=== PATIENT | female | born 2000 | race African-American/Black ===

== ENCOUNTER 2022-01-28 08:44 | Emergency (ER) | payer OTHER, BC, SELFPAY ==
--- NOTE | ~2022-01-28 | XR_ITS ---
EXAMINATION: XR lumbar spine 2-3V DATE: 01/28/2022 09:21 INDICATION: Low back pain TECHNIQUE: Anteroposterior and lateral views of the lumbar spine, and cone-down lateral view of the l umbosacral junction were obtained. COMPARISON: None. FINDINGS: There is no fracture, dislocation, or subluxation. The vertebral body heights, alignment, a nd intervertebral disc spaces are normal. The paravertebral soft tissues are unremarkable. IMPRESSION: 1. No acute osseous abnormality. Reviewed, dictated and finalized at location B.
--- NOTE | ~2022-01-28 | XR_ITS ---
EXAMINATION: XR ribs LT 2V INDICATION: Left-sided chest pain TECHNIQUE: 3 views of the left ribs were obtained. COMPARISON: None. FINDINGS: The visualized lungs are free of acute opacities. No pleural effusion or pneumothorax ident ified. The cardiomediastinal silhouette is normal. The visualized bones and soft tissues are unremark able. No displaced rib fracture is identified. IMPRESSION: 1. No acute cardiopulmonary abnormality or evidence of displaced rib fracture. Reviewed, dictated and finalized at location B.
[2022-01-28 08:47] VITALS: BP 113/71; PULSE 74; RESP 16; TEMP 36.7; O2SAT 100
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
== END 2022-01-28 10:32 | disposition home or self-care (01) ==
PROVIDERS: Emergency Provider Nurse Practitioner Family
DX: S39.012A Strain of muscle, fascia and tendon of lower back, initial encounter (principal); S20.212A Contusion of left front wall of thorax, initial encounter; V49.40XA Driver injured in collision with unspecified motor vehicles in traffic accident, initial encounter
CPT/HCPCS: 71100; 72100; 99284